=== PATIENT | male | born 1950 | race Two or more races ===

== ENCOUNTER 2018-01-12 03:11 | Inpatient (IN) | payer OTHER ==
[~2018-01-12] VITALS: Ht 177.8 cm; Wt 82.7 kg
[2018-01-12] MEDS ORDERED: SODIUM CHLORIDE 0.9% 1,000 ML IV ONE (04:07)
[2018-01-12] MEDS ORDERED: ASPirin 81 mg TAB PO ONE (04:15)
[2018-01-12] MEDS ORDERED: NITROGLYCERIN 0.4MG/HR TOPICAL PATCH TD ONE (04:15)
[2018-01-12] MEDS ORDERED: DILTIAZEM HCL 25 MG/5 ML VIAL IV ONE (04:15)
[2018-01-12] MEDS ORDERED: ONDANSETRON HCL 4 MG/2 ML VIAL IV ONE (04:15)
[2018-01-12 04:28] LABS: Basophils # (auto) 0.1 uL; Basophils % (auto) 0.7 % (0.0-2.0); Eosinophils # (auto) 0 uL; Eosinophils % (auto) 0.1 % (0.0-7.0); Hemoglobin 16.1 g/dL (13.5-17.5); Lymphocytes # (auto) 0.7 uL; Lymphocytes % (auto) 3.5 % (10.0-50.0); Mean Corpuscular Hemoglobin 27.8 pg (28.0-32.0); Mean Corpuscular Hgb Conc. 33.6 g/dL (32.0-36.0); Mean Corpuscular Volume 82.8 fL (80.0-100.0); Monocytes # (auto) 1.6 uL; Monocytes % (auto) 7.6 % (0.0-12.0); Neutrophils # (auto) 18.9 uL; Neutrophils % (auto) 88.1 % (37.0-80.0); Platelet Count (auto) 348 10^3/uL (140-450); Red Cell Distribution Width 16.2 % (11.8-14.3); White Blood Cell 21.4 10^3/uL (4.4-10.8)
[2018-01-12 04:45] LABS: INR 1.05 (0.9-1.15); Partial Thromboplastin Time 32.2 sec (23.78-33.04); Prothrombin Time 11.2 sec (9.27-12.13)
[2018-01-12 04:48] LABS: Alanine Aminotransferase 28 U/L (16-61); Albumin 3.1 g/dL (3.4-5.0); Alkaline Phosphatase 177 U/L (45-117); Amylase 19 U/L (25-115); Anion Gap 9 (5-15); Aspartate Aminotransferase 15 U/L (15-37); BUN/Creatinine Ratio 32.2; Bilirubin, Total 0.8 mg/dL (0.2-1.0); Blood Urea Nitrogen 19 mg/dL (7-18); Calcium 8.3 mg/dL (8.5-10.1); Carbon Dioxide 22 mmol/L (21-32); Chloride 102 mmol/L (98-107); GFR African American 177 mL/min; GFR Non-African American 147 mL/min; Glucose 116 mg/dL (74-106); Magnesium 2.2 mg/dL (1.6-2.6); Potassium 3.7 mmol/L (3.5-5.1); Sodium 133 mmol/L (136-145); Total Protein 7.5 g/dL (6.4-8.2)
[2018-01-12] MEDS ORDERED: MORPHINE SULFATE 4 MG/ML SYR/VIAL IV ONE (05:30)
[2018-01-12] MEDS ORDERED: metroNIDAZOLE 500MG/100ML 100 ML IV ONE (05:45)
[2018-01-12] MEDS ORDERED: PIPERACILLIN-TAZOB 3.375GM 100 ML IV ONE (05:45)
[2018-01-12 05:50] LABS: Urine Bacteria NONE SEEN /hpf (None Seen); Urine Blood Negative /uL (Negative); Urine Mucus FEW (None Seen); Urine Specific Gravity 1.022 (1.001-1.035); Urine WBC 3 /hpf (0 - 3)
[2018-01-12 06:13] LABS: Alcohol, Urine < 3.0 mg/dL (0-5); Amphetamine Screen, Urine POSITIVE (NEGATIVE); Barbiturate Scree,Urine NEGATIVE (NEGATIVE); Benzodiazephine Screen, Urine POSITIVE (NEGATIVE); Cannabinoid Screen, Urine POSITIVE (NEGATIVE); Cocaine Screen, Urine NEGATIVE (NEGATIVE); Opiate Scree,Urine POSITIVE (NEGATIVE); Phencyclidine Screen, Urine NEGATIVE (NEGATIVE)
[2018-01-12] MEDS ORDERED: hydrALAZINE HCL 20 MG/ML VL ONE (06:37)
[2018-01-12] MEDS ORDERED: hydrALAZINE HCL 20 MG/ML VL IV ONE (06:45)
[2018-01-12] MEDS ORDERED: ONDANSETRON HCL 4 MG/2 ML VIAL IV PRN (07:15)
[2018-01-12] MEDS ORDERED: ACETAMINOPHEN 500 MG TAB PO PRN (07:15)
[2018-01-12] MEDS ORDERED: SODIUM CHLORIDE 0.9% 1,000 ML IV SCH (07:15)
[2018-01-12] MEDS ORDERED: VANCOMYCIN PER PHARMACY 0 MG IV SCH (09:00)
[2018-01-12] MEDS: VANCOMYCIN 1GM/250ML 250 ML IV SCH ×2 (09:25→20:47)
[2018-01-12] MEDS: MORPHINE SULFATE 4 MG/ML SYR/VIAL IV PRN ×5 (09:32→22:25)
[2018-01-12] MEDS: HCTZ 25 MG TAB PO SCH (10:00)
[2018-01-12] MEDS: DILTIAZEM HCL 120MG ER CAP PO SCH (10:00)
[2018-01-12] MEDS: LISINOPRIL 10 MG TAB PO SCH (10:00)
[2018-01-12] MEDS ORDERED: PANTOPRAZOLE 40 MG/10 ML VIAL IV ONE (12:00)
[2018-01-12] MEDS: PIPERACILLIN-TAZOB 3.375GM 100 ML IV SCH ×2 (13:02→18:28)
[2018-01-12] MEDS: HYDROcodone-ACET 5/325MG TAB PO PRN (15:32)
[2018-01-12] MEDS: D5W/SOD CHLO 0.9% 1,000 ML IV SCH ×2 (15:33→21:39)
[2018-01-12] MEDS ORDERED: PNEUMOCOCCAL VACC POLYS 25 MCG/0.5 ML VIAL IM ONE (16:00)
[2018-01-12] MEDS ORDERED: GASTROGRAFIN 120 ML SOL ONE (16:01)
[2018-01-12 20:05] VITALS: BP 154/99
[2018-01-12] MEDS: PANTOPRAZOLE 40 MG/10 ML VIAL IV SCH (20:47)
[2018-01-12 22:00] VITALS: BP_SYST 120; BP_SYST 154; BP_DIAS 73; BP_DIAS 99
[2018-01-13] MEDS: PIPERACILLIN-TAZOB 3.375GM 100 ML IV SCH ×5 (00:17→23:54)
[2018-01-13] MEDS: HYDROcodone-ACET 5/325MG TAB PO PRN ×4 (00:56→23:29)
[2018-01-13 05:00] VITALS: BP 121/88
[2018-01-13] MEDS: MORPHINE SULFATE 4 MG/ML SYR/VIAL IV PRN ×2 (05:21→09:47)
[2018-01-13] MEDS: D5W/SOD CHLO 0.9% 1,000 ML IV SCH ×2 (07:45→17:45)
[2018-01-13 08:29] VITALS: BP 148/103
[2018-01-13] MEDS: PANTOPRAZOLE 40 MG/10 ML VIAL IV SCH ×2 (09:32→21:18)
[2018-01-13] MEDS: VANCOMYCIN 1GM/250ML 250 ML IV SCH ×2 (09:32→21:17)
[2018-01-13] MEDS: HCTZ 25 MG TAB PO SCH (09:34)
[2018-01-13] MEDS: DILTIAZEM HCL 120MG ER CAP PO SCH (09:34)
[2018-01-13 10:31] LABS: Basophils # (auto) 0.1 uL; Basophils % (auto) 0.5 % (0.0-2.0); Eosinophils # (auto) 0 uL; Eosinophils % (auto) 0.2 % (0.0-7.0); Hematocrit 41.8 % (41.0-53.0); Hemoglobin 14.1 g/dL (13.5-17.5); Lymphocytes # (auto) 0.6 uL; Lymphocytes % (auto) 4.4 % (10.0-50.0); Mean Corpuscular Hemoglobin 27.6 pg (28.0-32.0); Mean Corpuscular Hgb Conc. 33.6 g/dL (32.0-36.0); Monocytes # (auto) 0.8 uL; Monocytes % (auto) 5.6 % (0.0-12.0); Neutrophils # (auto) 12.4 uL; Neutrophils % (auto) 89.3 % (37.0-80.0); Nucleated Red Blood Cells % 0.1 %; Platelet Count (auto) 287 10^3/uL (140-450); Red Blood Cells 5.09 10^6/uL (4.5-5.90); Red Cell Distribution Width 16.2 % (11.8-14.3); White Blood Cell 13.9 10^3/uL (4.4-10.8)
[2018-01-13 10:37] LABS: Albumin 2.6 g/dL (3.4-5.0); BUN/Creatinine Ratio 15.2; Calcium 7.4 mg/dL (8.5-10.1)
[2018-01-13 10:40] LABS: Bilirubin, Total 0.7 mg/dL (0.2-1.0); Total Protein 6.7 g/dL (6.4-8.2)
[2018-01-13 12:52] VITALS: BP 151/90
[2018-01-13] MEDS: LISINOPRIL 10 MG TAB PO SCH (14:56)
[2018-01-13 16:34] VITALS: BP 159/104
[2018-01-13] MEDS: SUCRALFATE 1 GM/10 ML ORAL SUSP PO SCH ×2 (18:34→21:18)
[2018-01-13 20:05] VITALS: BP 124/87
[2018-01-13 22:00] VITALS: BP 124/87
== END 2018-01-14 00:30 | disposition left against medical advice (07) | DRG 720 ==
LOC: ER 03:23 → OVERFLOW 03:24 → WEST WING 14:24
PROVIDERS: ADMIT Nurse Practitioner Family; ATTEND Internal Medicine
DX: A41.9 Sepsis, unspecified organism (principal); K56.600 Partial intestinal obstruction, unspecified as to cause; I48.91 Unspecified atrial fibrillation; E44.1 Mild protein-calorie malnutrition; K52.9 Noninfective gastroenteritis and colitis, unspecified; N20.0 Calculus of kidney; E11.9 Type 2 diabetes mellitus without complications; K40.20 Bilateral inguinal hernia, without obstruction or gangrene, not specified as recurrent; I10 Essential (primary) hypertension; I20.9 Angina pectoris, unspecified; N28.89 Other specified disorders of kidney and ureter; Z53.21 Procedure and treatment not carried out due to patient leaving prior to being seen by health care provider; Z59.0 Homelessness; Z68.26 Body mass index [BMI] 26.0-26.9, adult; Z23 Encounter for immunization
CPT/HCPCS: 36415; 71045; 74176; 74250; 80053; 80202; 80307; 81001; 82150; 82270; 83605; 83735; 83880; 84484; 85025; 85379; 85610; 85730; 87040; 93005; 94761; 96365; 96367; 96375; 99291; C9113; J2405; J2543; J3490; J7042

== ENCOUNTER 2018-01-14 01:25 | Emergency (ER) | payer OTHER | END 2018-01-14 02:45 | disposition left against medical advice (07) | LOC: ER 01:29 | DX: R52 Pain, unspecified (principal); Z53.21 Procedure and treatment not carried out due to patient leaving prior to being seen by health care provider ==

== ENCOUNTER 2018-01-16 13:08 | Inpatient (IN) | payer OTHER ==
[~2018-01-16] VITALS: Ht 177.8 cm; Wt 87.8 kg
[2018-01-16 13:44] LABS: Basophils # (auto) 0 uL; Basophils % (auto) 0.3 % (0.0-2.0); Eosinophils # (auto) 0 uL; Eosinophils % (auto) 0.2 % (0.0-7.0); Lymphocytes # (auto) 0.9 uL; Monocytes # (auto) 0.4 uL; Neutrophils # (auto) 12.5 uL; Nucleated Red Blood Cells % 0.1 %; Red Cell Distribution Width 16.6 % (11.8-14.3); White Blood Cell 13.9 10^3/uL (4.4-10.8)
[2018-01-16 13:46] LABS: Hematocrit 53.9 % (41.0-53.0); Hemoglobin 17.8 g/dL (13.5-17.5); Lymphocytes % (auto) 6.3 % (10.0-50.0); Mean Corpuscular Hemoglobin 27.6 pg (28.0-32.0); Mean Corpuscular Volume 83.8 fL (80.0-100.0); Monocytes % (auto) 3.1 % (0.0-12.0); Neutrophils % (auto) 90.1 % (37.0-80.0); Red Blood Cells 6.43 10^6/uL (4.5-5.90)
[2018-01-16] MEDS ORDERED: ONDANSETRON HCL 4 MG/2 ML VIAL IV ONE (14:00)
[2018-01-16] MEDS ORDERED: LORazepam 2MG/ML-1ML VIAL ONE (14:04)
[2018-01-16 14:10] LABS: Lactic Acid w/Reflex 10.2 mmol/L (0.4-2.0)
[2018-01-16 14:10] LABS: Alanine Aminotransferase 32 U/L (16-61); Albumin 3.2 g/dL (3.4-5.0); Alkaline Phosphatase 202 U/L (45-117); Anion Gap 21 (5-15); Aspartate Aminotransferase 30 U/L (15-37); BUN/Creatinine Ratio 17.1; Bilirubin, Total 0.5 mg/dL (0.2-1.0); Blood Urea Nitrogen 33 mg/dL (7-18); Calcium 8.7 mg/dL (8.5-10.1); Carbon Dioxide 10 mmol/L (21-32); Chloride 98 mmol/L (98-107); GFR African American 45 mL/min; GFR Non-African American 37 mL/min; Glucose 298 mg/dL (74-106); Magnesium 2.5 mg/dL (1.6-2.6); Potassium 3.2 mmol/L (3.5-5.1); Sodium 129 mmol/L (136-145)
[2018-01-16] MEDS ORDERED: LORazepam 2MG/ML-1ML VIAL IV ONE (14:15)
[2018-01-16 14:26] LABS: Platelet Count (auto) 569 10^3/uL (140-450)
[2018-01-16] MEDS ORDERED: PIPERACILLIN-TAZOB 3.375GM 100 ML IV ONE (14:45)
[2018-01-16] MEDS ORDERED: ETOMIDATE (2MG/ML) 20ML VIAL IV ONE ×2 (14:48→15:00)
[2018-01-16] MEDS ORDERED: SUCCINYLCHOLINE CHLORIDE 20 MG/ML 10ML VIAL IV ONE ×2 (14:49→15:00)
[2018-01-16] MEDS ORDERED: MIDAZOLAM DRIP 50 mg/50mL 50 ML IV SCH (15:02)
[2018-01-16] MEDS ORDERED: PROPOFOL 100 ML IV SCH (15:02)
[2018-01-16] MEDS ORDERED: DEXTROSE (50%) 50ML SYRG IV PRN (15:45)
[2018-01-16] MEDS ORDERED: NITROGLYCERIN 0.4 MG SL TAB SL PRN (16:30)
[2018-01-16] MEDS ORDERED: VANCOMYCIN PER PHARMACY 0 MG IV SCH (16:30)
[2018-01-16] MEDS ORDERED: MORPHINE SULFATE 4 MG/ML SYR/VIAL IV PRN ×2 (16:30)
[2018-01-16] MEDS ORDERED: LABETALOL HCL 5 MG/ML ML 20ML VIAL IV PRN (16:30)
[2018-01-16] MEDS ORDERED: ONDANSETRON HCL 4 MG/2 ML VIAL IV PRN (16:30)
[2018-01-16] MEDS ORDERED: POTASSIUM CHL 20MEQ/100ML 100 ML IV ONE (16:30)
[2018-01-16] MEDS ORDERED: SOD CHL 0.45% WITH 20MEQ KCL 1,000 ML IV SCH (16:30)
[2018-01-16] MEDS ORDERED: VANCOMYCIN 1GM/250ML 250 ML IV ONE ×2 (16:45→17:00)
[2018-01-16] MEDS: PROPOFOL 100 ML IV SCH (16:56)
[2018-01-16] MEDS: MIDAZOLAM DRIP 50 mg/50mL 50 ML IV SCH ×4 (16:56→23:06)
[2018-01-16] MEDS ORDERED: VANCOMYCIN 1GM/250ML 250 ML IV SCH (17:00)
[2018-01-16] MEDS ORDERED: SODIUM BICARBONATE 8.4 % INJ 50ML VIAL IV ONE (17:00)
[2018-01-16] MEDS: PIPERACILLIN-TAZOB 2.25GM 50 ML IV SCH (17:43)
[2018-01-16] MEDS: SOD CHL IV SCH (17:43)
[2018-01-16] MEDS: SODIUM BICARB IV SCH (17:43)
[2018-01-16] MEDS: ACCU-CHEK COMFORT CURVE STRIP VI SCH (17:43)
[2018-01-16] MEDS: KCL IV SCH (17:43)
[2018-01-16] MEDS: InsuLIN REG 1unit/0.01ml Soln (100units/ml) SC SCH (17:43)
[2018-01-16 17:45] LABS: Amphetamine Screen, Urine POSITIVE (NEGATIVE); Barbiturate Scree,Urine NEGATIVE (NEGATIVE); Cannabinoid Screen, Urine POSITIVE (NEGATIVE); Cocaine Screen, Urine NEGATIVE (NEGATIVE); Opiate Scree,Urine POSITIVE (NEGATIVE); Phencyclidine Screen, Urine NEGATIVE (NEGATIVE)
[2018-01-16] MEDS ORDERED: fentaNYL Drip 2500mCg/250mlNS 250 ML IV SCH (17:45)
[2018-01-16 17:56] LABS: Benzodiazephine Screen, Urine POSITIVE (NEGATIVE)
[2018-01-16 18:01] LABS: Urine Bacteria NONE SEEN /hpf (None Seen); Urine Blood Negative /uL (Negative); Urine Mucus FEW (None Seen); Urine Specific Gravity 1.029 (1.001-1.035); Urine Sperm PRESENT /hpf (None Seen); Urine WBC 3 /hpf (0 - 3)
[2018-01-16] MEDS: IPRATROPIUM BROM 0.5 MG/2.5ML INH SOL NEB SCH (18:24)
[2018-01-16] MEDS: ALBUTEROL SULF 2.5 MG/0.5ML(0.5%) NEB SOLN NEB SCH (18:24)
[2018-01-16 18:25] VITALS: BP 102/65
[2018-01-16] MEDS: NOREPINEPHRINE 8 MG/250ML KIT 250 ML IV SCH (19:38)
[2018-01-16 20:20] VITALS: BP 98/65
[2018-01-16 22:34] VITALS: BP 127/76
[2018-01-17] VITALS (41 sets, daily range): BP systolic 80–138; BP diastolic 54–95
[2018-01-17] MEDS: NOREPINEPHRINE 8 MG/250ML KIT 250 ML IV SCH ×3 (00:15→12:56)
[2018-01-17] MEDS ORDERED: PROPOFOL 100 ML IV ONE ×2 (00:15→03:50)
[2018-01-17] MEDS: IPRATROPIUM BROM 0.5 MG/2.5ML INH SOL NEB SCH ×3 (00:18→11:31)
[2018-01-17] MEDS: ALBUTEROL SULF 2.5 MG/0.5ML(0.5%) NEB SOLN NEB SCH ×3 (00:18→11:31)
[2018-01-17] MEDS: PIPERACILLIN-TAZOB 2.25GM 50 ML IV SCH ×3 (01:44→13:02)
[2018-01-17] MEDS: ACCU-CHEK COMFORT CURVE STRIP VI SCH ×3 (01:45→13:18)
[2018-01-17] MEDS: InsuLIN REG 1unit/0.01ml Soln (100units/ml) SC SCH ×2 (02:00→06:00)
[2018-01-17] MEDS: MIDAZOLAM DRIP 50 mg/50mL 50 ML IV SCH ×2 (03:12→08:14)
[2018-01-17] MEDS: PROPOFOL 100 ML IV SCH (04:00)
[2018-01-17 04:41] LABS: Hemoglobin 15.5 g/dL (13.5-17.5); Mean Corpuscular Hemoglobin 27.7 pg (28.0-32.0); Mean Corpuscular Hgb Conc. 32.2 g/dL (32.0-36.0); Platelet Count (auto) 335 10^3/uL (140-450); Red Blood Cells 5.58 10^6/uL (4.5-5.90); Red Cell Distribution Width 16.9 % (11.8-14.3); White Blood Cell 21.4 10^3/uL (4.4-10.8)
[2018-01-17 04:44] LABS: Basophils % (manual) 0 (0.0-2.0); Blast Cells 0; Eosinophils % (manual) 0 (0-7); Metamyelocytes % 0; Myelocytes % 0; Promyelocytes % 0; Reactive Lymphocytes 0
[2018-01-17 05:02] LABS: Band Neutrophils % (manual) 13; Lymphocytes % (manual) 4 (10.0-50.0); Monocytes % (manual) 11 (0-12)
[2018-01-17] MEDS ORDERED: SODIUM BICARBONATE 8.4 % INJ 50ML VIAL IV ONE (05:16)
[2018-01-17] MEDS: SOD CHL IV SCH (05:23)
[2018-01-17] MEDS: SODIUM BICARB IV SCH (05:23)
[2018-01-17] MEDS: KCL IV SCH (05:23)
[2018-01-17 05:56] LABS: Albumin 2.1 g/dL (3.4-5.0); BUN/Creatinine Ratio 11.9; Bilirubin, Total 0.7 mg/dL (0.2-1.0); Calcium 7.3 mg/dL (8.5-10.1); Potassium 5.2 mmol/L (3.5-5.1); Total Protein 5.3 g/dL (6.4-8.2)
[2018-01-17] MEDS ORDERED: VASOPRESSIN 20 UNIT/ML ONE (07:13)
[2018-01-17] MEDS ORDERED: SODIUM BICARBONATE 50ML VIAL 100 ML in SOD CHL 0.45% 1,000 ML IV SCH (07:15)
[2018-01-17] MEDS ORDERED: VASOPRESSIN 50 UNITS in D5W 5% 247.5 ML IV SCH (07:30)
[2018-01-17] MEDS ORDERED: PHENYLEPHRINE IV 250 ML IV ONE ×2 (07:42→12:48)
[2018-01-17] MEDS ORDERED: ENOXAPARIN SOD 40 MG/0.4 ML SYRINGE SC SCH (10:00)
[2018-01-17] MEDS: PHENYLEPHRINE INJ 20 MG in SODIUM CHL 0.9% 250 ML IV SCH ×2 (11:19→13:02)
[2018-01-17] MEDS ORDERED: SODIUM CHLORIDE 0.9% 1,000 ML IV SCH (11:45)
[2018-01-17] MEDS ORDERED: EPINEPHrine HCL 250 ML IV ONE (12:14)
[2018-01-17 13:05] LABS: Lactic Acid w/Reflex 16.5 mmol/L (0.4-2.0)
[2018-01-17] MEDS ORDERED: CLINDAMYCIN 600MG IV 50 ML IV SCH (14:00)
[2018-01-17 16:44] LABS: Albumin 1.2 g/dL (3.4-5.0); Bilirubin, Total 0.6 mg/dL (0.2-1.0); Calcium 6.3 mg/dL (8.5-10.1); Total Protein 3.4 g/dL (6.4-8.2)
== END 2018-01-17 14:12 | disposition expired | DRG 720 ==
LOC: ER 13:08 → OVERFLOW 13:09 → ICU WEST 01-17 03:56
PROVIDERS: ADMIT Internal Medicine; ATTEND Internal Medicine Pulmonary Disease
PROC: 06HY33Z Insertion of Infusion Device into Lower Vein, Percutaneous Approach (ICD-10-PCS; 2018-01-16)
PROC: 5A12012 Performance of Cardiac Output, Single, Manual (ICD-10-PCS; principal; 2018-01-17)
PROC: 5A1935Z Respiratory Ventilation, Less than 24 Consecutive Hours (ICD-10-PCS; 2018-01-17)
PROC: 0BH17EZ Insertion of Endotracheal Airway into Trachea, Via Natural or Artificial Opening (ICD-10-PCS; 2018-01-17)
DX: A41.9 Sepsis, unspecified organism (principal); K76.7 Hepatorenal syndrome; I46.9 Cardiac arrest, cause unspecified; R65.21 Severe sepsis with septic shock; N17.9 Acute kidney failure, unspecified; K56.609 Unspecified intestinal obstruction, unspecified as to partial versus complete obstruction; E44.0 Moderate protein-calorie malnutrition; G92 Toxic encephalopathy; N18.3 Chronic kidney disease, stage 3 (moderate); E11.21 Type 2 diabetes mellitus with diabetic nephropathy; D75.1 Secondary polycythemia; E11.22 Type 2 diabetes mellitus with diabetic chronic kidney disease; E87.1 Hypo-osmolality and hyponatremia; I48.92 Unspecified atrial flutter; I51.7 Cardiomegaly; E86.0 Dehydration; E87.2 Acidosis; E87.6 Hypokalemia; F17.210 Nicotine dependence, cigarettes, uncomplicated; N20.0 Calculus of kidney; Z59.0 Homelessness; I48.91 Unspecified atrial fibrillation; I12.9 Hypertensive chronic kidney disease with stage 1 through stage 4 chronic kidney disease, or unspecified chronic kidney disease; S36.119A Unspecified injury of liver, initial encounter; X58.XXXA Exposure to other specified factors, initial encounter; Y93.89 Activity, other specified; Y92.89 Other specified places as the place of occurrence of the external cause; Y99.8 Other external cause status; M62.82 Rhabdomyolysis; F15.10 Other stimulant abuse, uncomplicated; F11.10 Opioid abuse, uncomplicated; F12.10 Cannabis abuse, uncomplicated
CPT/HCPCS: 31500; 36415; 36556; 36600; 51702; 71045; 74176; 76775; 80053; 80307; 80320; 81001; 82140; 82550; 82805; 82962; 83036; 83605; 83690; 83735; 84484; 85007; 85025; 85027; 87040; 87070; 87081; 87205; 93306; 94002; 94640; 96365; 96375; 99291; 99292; A6257; J0171; J0330; J1815; J2250; J2405; J2543; J2704; J3480; J7060